=== PATIENT | male | born 2005 | race Caucasian/White ===

== ENCOUNTER 2025-01-16 02:02 | Emergency (ER) | payer BC, SELFPAY ==
[2025-01-16 02:08] VITALS: BP 158/117; PULSE 112; RESP 16; TEMP 36.7; O2SAT 100
--- NOTE | 2025-01-16 02:14 | ED_ITS ---
HPI - Dental/Oral General Chief complaint: Dental/Oral Stated complaint: dental pain Time Seen by Provider: 01/16/25 02:12 Source: patient Mode of arrival: ambulatory Limitations: no limitations History of Present Illness HPI Narrative: Patient presents with dental pain in the right upper tooth. He has completed a course of antibiotics. He needs an extraction as he states that he has DKA past the bone line and the plan is for removal and then an implant to be placed. He has seen an oral surgeon for this in early December and currently his procedure scheduled for February given that he is a student. He states water helps the pain, in particular for this cold. He has been taking various pain meds for this, typically 200 mg x 3 (600mg) t.i.d. ibuprofen as well as Tylenol 325 x2 several times a day (last doses were at 3am, 8am, and 3pm. He is also taking Tylenol #3 with his last dose being at 10 or 11pm. He denies any fever. He does state that he has some chills while in the emergency department although he is in a cold room and acknowledges he is wearing shorts and thinks that might be a contributor. He denies any ear pain or tinnitus. He reports having significant dizziness tonight and this is also what prompted to come to the emergency department in addition to the pain. He notes that he was so dizzy that he could not drive himself and had to have someone else drive him. Patient describes his dizziness as vertigo , feeling like he is falling, worse when closes eyes. Also describes it as a lightheadedness later. No disorientation/confusion. Related Data Allergies Allergy/AdvReac Type Severity Reaction Status Date / Time amoxicillin Allergy unknown Verified 01/16/25 17:56 [facility] Social History Social History Occupation/Education: student Additional occupation/education comments: college Exam 2 Narrative: GENERAL: Well-appearing, well-nourished, and in no acute distress. HEAD: Normocephalic, atraumatic. EYES: Non injected, non icteric ENT: Nares clear, no rhinorrhea or epistaxis. No trismus. Uvula midline. Posterior oropharynx without significant erythema/hyperemia. Patient tolerating secretions. Patient has multiple dental caries, many of them filled. No appreciable dental abscess, apical or otherwise. No tenderness to percussion of the tooth that patient identifies as being painful which is in the right upper portion of the mouth. No induration in the buccal mucosa or cheek. No dysphonia. Tolerating secretions. NECK: Supple. CHEST: Speaking in full sentences. No respiratory distress. HEART: Regular rate and rhythm. . ABDOMEN: Soft, nondistended. EXTREMITIES: Normal range of motion. No lower extremity edema. SKIN: Warm, dry, no rash. NEURO: No focal deficits. Alert and oriented x3. Fatigable 2 beat nystagmus to the left in b/l eyes. PSYCH: Normal mood and affect. Course Vital Signs Vital signs: Vital Signs Temperature 98.1 F 01/16/25 02:08 Pulse Rate 112 H 01/16/25 02:08 Respiratory Rate 16 01/16/25 02:08 Blood Pressure 158/117 H 01/16/25 02:08 Pulse Oximetry 100 01/16/25 02:08 Oxygen Delivery Room Air 01/16/25 02:08 Temperature 97.9 F 01/16/25 04:53 Pulse Rate 115 H 01/16/25 04:53 Respiratory Rate 15 01/16/25 04:53 Blood Pressure 161/100 H 01/16/25 04:53 Pulse Oximetry 100 01/16/25 04:53 Oxygen Delivery Room Air 01/16/25 02:08 MDM - Dental/Oral MDM Narrative Medical decision making narrative: Patient presents with dental pain and a right upper tooth which is due for extraction and new implantation by an oral surgeon currently scheduled for February because he is a student. In the emergency department he is afebrile with vital signs notable for tachycardia and hypertension. Given the patient has had tremendous pain, he has been using analgesic medication around the clock. Also what he reports seems to not be a toxic level, he is having symptoms and out of an abundance of precaution, will obtain Tylenol level as well as co-ingestants to ensure he has not accidentally overdosed and taken more than this. Tylenol level is appropriate. 1L IV fluids and meclizine initially ordered. UDS positive for opiates and amphetamines. Patient describes his dizziness as vertigo , feeling like he is falling, worse when closes eyes. He does have left beating fatigable nystagmus. Declines dental block that is offered. Patient tells the nurse at approximately 4:45 a.m. that his pain is improving. His dizziness is also improving although still present. He states tolerable. Will give 2nd line medication, Valium. Ortho stats are reviewed. Normal except for he is hypertensive. He states the Valium made him feel weird but his pain is better. Patient has been persistently tachycardic. Possibly due to slightly anxious affect and/or medication side effect (patient appears to be on ADD/ADHD meds per review of presciption monitoring program) but out of an abundance of precaution TSH in D-dimer (though patient denies CP or SOB) are ordered as well; these are normal. He does not know if a third line medication (considered promethazine for its antihistamine properties to suppress the vestibular end-organ receptors and inhibit activation of vagal response) will work given this has been a chronic issue; deferred for now. Patient is observed ambulating to the bathroom twice and does so with steady gait. Discharged with prescriptions for [id number]-gksvrew analgesics medications and reminded on appropriate dosing (although again, it does appear patient is taking them appropriately). Also provided short course of opiate medications for breatkthrough pain. DIRECTOR MUSEUM OR ZOO reviewed. Advised follow-up with oral surgeon and consideration of moving his surgical intervention up. Differential Diagnosis Differential diagnosis: Likely gingival abscess, dental caries, toothache, dental abscess, fracture of tooth and other (Consider medication side effect including accidental overdose) Lab Data Attestation: I reviewed the patient's lab results. Lab results narrative: Mild leukocytosis. 01/16/25 02:51 01/16/25 03:09 Labs: Lab Results 01/16/25 01/16/25 01/16/25 Range/Units 02:51 03:09 03:35 WBC 10.9 H (4.5-10.0) K/mm3 RBC 5.89 (4.6-6.20) M/mm3 Hgb 17.2 (14.0-18.0) g/dL Hct 48.0 (42.0-52.0) % MCV 81.5 (80-100) fl MCH 29.2 (26-34) pg MCHC 35.8 (32-36) g/dl RDW 12.5 (11.5-14.5) % Plt Count 232 (150-375) k/mm3 MPV 10.0 (7.4-10.4) fl Immature Gran % (Auto) 0.3 (0-0.5) % Neut % (Auto) 64.4 (45.5-73.1) % Lymph % (Auto) 23.4 (18.3-44.2) % [place] % (Auto) 7.6 (2.6-8.5) % Eos % (Auto) 3.9 (0-4.4) % Baso % (Auto) 0.4 (0.2-1.2) % Lymph # (Auto) 2.56 (0.9-3.2) K/mm3 [place] # (Auto) 0.8 H (0.1-0.6) K/mm3 Eos # (Auto) 0.4 H (0-0.3) K/mm3 Baso # (Auto) 0.0 (0.0-0.1) K/mm3 Abs Immat Gran (auto) 0.03 (0.00-0.031) K/mm3 Absolute Neuts (auto) 7.0 H (1.3-6.7) K/mm3 Absolute Nucleated RBC 0.000 (0.0-0.012) K/mm3 Nucleated RBC % 0.0 (0.0-0.2) % PT 13.4 (11.1-14.7) Seconds INR 1.0 APTT 31.6 (22.3-36.8) Seconds D-Dimer < 0.27 (<0.48) ug/mL Sodium 137 (137-145) mmol/L Potassium 3.9 (3.4-5.0) mmol/L Chloride 106 (98-107) mmol/L Carbon Dioxide 22 (22-30) mmol/L Anion Gap 9 (4-12) mmol/L BUN 10 (9-20) mg/dL Creatinine 0.74 (0.7-1.3) mg/dL Estim Creat Clear Calc 133 ml/min Estimated GFR > 60 (59 - ) Glucose 98 (65-110) mg/dL Calcium 8.5 (8.4-10.2) mg/dL Total Bilirubin 0.4 (0.2-1.3) mg/dL AST 20 (17-59) U/L ALT 25 (6-50) U/L Alkaline Phosphatase 70 (38-126) U/L Total Protein 6.0 L (6.3-8.2) g/dL Albumin 3.9 (3.5-5.1) g/dL TSH 4.010 (0.465-4.680) uIU/mL Salicylates < 1.0 L (2-20) mg/dL Urine Opiates Screen Positive A (Negative) Urine Methadone Screen Negative (Negative) Acetaminophen < 10 L (10-30) ug/mL Ur Barbiturates Screen Negative (Negative) Ur Phencyclidine Scrn Negative (Negative) Ur Amphetamine Screen Positive A (Negative) U Benzodiazepines Scrn Negative (Negative) Urine Cocaine Screen Negative (Negative) U Cannabinoids Screen Negative (Negative) Ethyl Alcohol < 10 (<10) mg/dL ECG Data EKG #1: Attestation: I personally reviewed and interpreted this ECG as follows: ECG completion date: 01/16/25 ECG completion time: 02:45 Interpretation: Normal sinus rhythm at a rate of 88 beats per minute. NC interval 132. QRS 93. QT/QTC 333/378. Good R-wave progression across the precordial leads. No T- wave inversions. There is widespread ST slurring, most prominent in the mid to left precordial leads V2 through V5 but without elevation and some eleation in II. but not III or aVF ; notching/slurring of the J-point in the inferior leads II and III. T waves are prominent slightly asymmetrical and concordant with the QRS complex. These findings, especially in an otherwise healthy patient of age less than 50 years old suggest benign early repolarization, usually benign ECG pattern Discharge Plan Discharge Clinical Impression: Tooth ache, Medication side effect, Dizziness Patient Disposition: Home, Self-Care Condition: Stable Instructions: Antibiotic Form, Vertigo (DC), Lightheadedness (ED), Dizziness (ED), Toothache (ED), Opioid Safety (ED) Additional Instructions: Acetaminophen/Tylenol (maximum 4000 mg per day) is safe to take with NSAIDs (ibuprofen/Motrin) for pain relief. For breakthrough pain, short course of opiate/narcotic medications have been prescribed. Maintain your hydration. Follow-up with your oral surgeon, reasonable to see if surgery can be moved up sooner. Return to the emergency department with any new/worsen/unmanaged symptoms. Patient Language: Qatari Prescriptions: New ibuprofen 600 mg tablet 600 mg PO TID PRN (Reason: pain) Qty: 30 0RF acetaminophen 500 mg capsule 1,000 mg PO Q6H PRN (Reason: pain) Qty: 30 0RF oxycodone 5 mg tablet 5 mg PO Q8H PRN (Reason: pain) Qty: 14 0RF Follow-up/Referrals: UNKNOWN,DOCTOR [Primary Care Provider] - Stand Alone Forms: Work/School Release IP Time of Disposition: 05:47
--- NOTE | 2025-01-16 02:34 | ECG_ITS ---
Test Date: 2025-01-16 02:45:47 Measurements Intervals [place] Rate: 88 P: 21 WA: 132 QRS: 50 QRSD: 93 T: 33 QT: 333 QTc: 403 Interpretive Statements SINUS RHYTHM ST ELEVATION CONSISTENT WITH PERICARDITIS, OR EARLY REPOLARIZATION [ST ELEVATION W/O NORMALLY INFLECTED T WAVE] No previous ECG available for comparison Electronically Signed On 01-16-2025 11:46:05 CDT by Simon Reed M.D.
--- OUTSIDE RECORDS SUMMARY | 2025-01-16 02:41 | XMS_ITS | Clinical Summary ---
Author Organization [facility] Address [address] [place] [address] Phone Care Team Providers Care Architectural Project Captain Name Role Phone Lakia Reyes MD Primary Care Provider Allergies Active Allergy Reactions Criticality Noted Date Comments Amoxicillin Nausea 09/26/2017 Nausea, vomiting Amoxicillin-Pot Clavulanate Nausea,Anxiety Medium 05/2018 No Known Drug Allergy Unknown 10/14/2013 Medications busPIRone (BUSPAR) 10 MG Tablet 2 times daily. 9 Active acetaminophen (TYLENOL) 325 MG Tablet Take 2 Tabs by mouth every 6 hours as needed for Mild or more severe pain or Fever. 120 Tab 0 Active ibuprofen (MOTRIN) 400 MG Tablet Take 1 Tab by mouth every 6 hours as needed for Mild or more severe pain or Fever. 270 Tab 0 Active sertraline (ZOLOFT) 100 MG Tablet 0 Active ondansetron (Zofran ODT) 4 MG TABLET DISPERSIBLE Take 1 Tablet by mouth every 8 hours as needed for Nausea - 1st line. 15 Tablet 1 Active HYDROcodone-acetam inophen (NORCO) 5-325 MG TabletIndications: Dental caries Take 1 Tablet by mouth every 6 hours as needed for Severe pain. 12 Tablet 3 Active amphetamine-dextro amphetamine (Adderall) 15 MG TabletIndications: Attention deficit disorder, unspecified hyperactivity presence Take 1 Tablet by mouth 2 times daily. 60 Tablet 4 Active Active Problems Problem Noted Date Diagnosed Date ADD (attention deficit disorder) 01/18/2021 Obsessive compulsive disorder 02/04/2020 Mood disorder 02/04/2020 Thrombocytopenia 02/03/2020 Resolved Problems Problem Noted Date Diagnosed Date Resolved Date Headache 02/04/2020 02/07/2020 Viral sepsis 02/03/2020 01/18/2021 Abdominal pain 02/03/2020 02/07/2020 Body aches 02/03/2020 02/07/2020 Adenovirus infection 02/03/2020 021 Neutropenia associated with infection 02/03/2020 01/18/2021 Bandemia 02/03/2020 01/18/2021 COVID-19 testing in process 02/03/2020 02/07/2020 Overview (02/03/2020): COVID19 RT-PCR testing sent on 02/02/20 due to lower respiratory tract symptoms with fever. Results pending Encounters Date Type Department Care Team Description 01/15/2025 [facility] [address] [place] [address] Nina Adamson, MOTORCYCLE DELIVERER, EMPLOYEE COUNSELOR from Last 3 Months Immunizations Immunization Administration Dates Next Due Covid-19, Mrna, Lnp-s, Pf, 3 0 Mcg/0.3 Ml Dose (Pfizer) 02/27/2021,02/06/2021 DTAP VACCINE 05/18/2009, 5,2004,07/15,2004 HIB Vaccine (PRP-T) 03/24/2005, 4,2004,05/12 Hepatitis A Vaccine 05/18/2009 Hepatitis A Vaccine, Pediatric/adolescent, 2 Dose Schedule 02/02/2022 Hepatitis B Vaccine 2004,2004,2003 Human Papillomavirus (HPV) 9 -valent Vaccine 11/06/2017,05/15/2017 Inactivated Polio Vaccine 05/18/2009,,2004,05/12 Influenza Vaccine, Quadrivalent, PF /12/2022,08/04/2021,08/28/2020,09/18,08/01/2017 MMR Vaccine 05/18/2009,03/24/2005 Meningococcal MCV4O 06/03/2021 PUR MENINGOCOCCAL MCV4O 05/22/2015 PUR TDAP 7+ YRS IM 05/22/2015 Pneumococcal Vaccine Peds - 7 Valent 11/2004,2004,2004,05/12 Pur Varicella Virus SQ 05/22/2015 Varicella Vaccine Live 03/24/2005 Family History Medical History Relation Name Comments No Known Problems Father No Known Problems Mother Relation Name Status Comments Father Mother Social History Tobacco Use Types Packs/Day Years Used Date Smoking Tobacco: Never Smokeless Tobacco: Never Tobacco Cessation:Counseling Given: No Alcohol Use Standard Drinks/Week Comments No 0 (1 standard drink = 0.6 oz pur e alcohol) Education Answer Date Recorded What is the highest level of school you have completed or the highest degree you have received? 12th grade 11/25/2022 Sex and Gender Information Value Date Recorded Sex Assigned at Not on file Legal Sex Male 4:00 AM MARKET EDITOR Gender Identity Not on file Sexual Orientation Not on file Last Filed Vital Signs Vital Sign Reading Time Taken Comments Blood Pressure 137/105 10/04/2023 1:38 AM MARKET EDITOR Pulse 87 10/04/2023 1:38 AM MARKET EDITOR Temperature 36.3 C (97.3 F) 10/04/2023 1:38 AM MARKET EDITOR Respiratory Rate 19 10/04/2023 1:38 AM MARKET EDITOR Oxygen Saturation 99% 10/04/2023 1:38 AM MARKET EDITOR Inhaled Oxygen Concentration - - Weight 73.8 kg (162 lb 11.2 oz) 10/04/2023 1:38 AM MARKET EDITOR Height 177.8 cm (5' 10 ) 10/04/2023 1:38 AM MARKET EDITOR Body Mass Index 23.34 10/04/2023 1:38 AM MARKET EDITOR Plan of Treatment Health Maintenance Due Date Last Done Comments Hepatitis C Virus (HCV) Screening 2004 Meningococcal B Immunization (1 of 2 - Standard) 2020 Influenza Immunization (#1) 2024 02/0 12/2022, 08/04/2021, 08/28/2020, Additional history exists SARS-COV-2 Immunization ( season) 2024 01/01/2022, 02/27/2021, 02/06/2021 DTaP/Tdap/Td Immunization (7 - Td or Tdap) 05/22/2025 05/22/2015, 05/18/2009, 07/18/2005, Additional history exists Respiratory Syncytial Virus (RSV) Immunization (Adult) (1 - 1-dose 75+ series) 2079 Hepatitis B Immunization Completed 004, 2004, 2004 Pneumococcal Immunization Combined Aged Out 03/24/2005, 2004, 2004, Additional history exists No longer eligible based on patient's age to complete this topic Measles Mumps Rubella (MMR) Immunization Discontinued 05/18/2009, 03/24/2005 Polio (IPV) Immunization Discontinued 009, 07/18/2005, 2004, Additional history exists Varicella Immunization Discontinued 05/22/2015, 2004 Human Papillomavirus (HPV) Immunization Completed 11/06/2017, 05/15/2017 Meningococcal Immunization (ACWY) Completed 06/03/2021, 05/22/2015 Hepatitis A Immunization Discontinued 02/02/2022, 04/23 Rotavirus Immunization Aged Out No lo nger eligible based on patient's age to complete this topic Insurance [facility] [employer] ID [employer] Advance Directives * Full Code (Latest Code Status on File) Date Activated Date Inactivated Comments 02/03/2020 6:07 AM 02/04/2020 3:00 PM CPR-Full [place] atment: FULL ARREST: Attempt Resuscitation/CPR wit intubation and mechanical ventilation. PRE-ARREST: Use entire range of life support measures to stabilize the patient. Care Teams Architectural Project Captain Relationship Specialty Start Date End Date Lakia Reyes MD [address] [place] [phone] PCP - General Family Medicine 02/26/24
--- OUTSIDE RECORDS SUMMARY | 2025-01-16 02:41 | XMS_ITS | Encounter Summary ---
Author Organization [facility] Address [address] [place] [address] Phone Care Team Providers Care Bar Welder Name Role Phone Lakia Reyes MD Primary Care Provider Encounter Details Date Type Department Care Team (Late st Contact Info) Description 01/15/2025 [facility] [address] [place] [address] Nina Adamson APRN, CIGARETTE MAKER [address] [place] [address] Social History Tobacco Use Types Packs/Day Years Used Date Smoking Tobacco: Never Smokeless Tobacco: Never Alcohol Use Standard Drinks/Week Comments No 0 (1 standard drink = 0.6 oz pur e alcohol) Education Answer Date Recorded What is the highest level of school you have completed or the highest degree you have received? 12th grade 11/25/2022 Sex and Gender Information Value Date Recorded Sex Assigned at Not on file Legal Sex Male 4:00 AM TORCH BURNER Gender Identity Not on file Sexual Orientation Not on file documented as of this encounter Progress Notes * Nina Adamson, BELLA, CIGARETTE MAKER - 01/15/2025 11:49 PM CDT Date: 01/15/2025 22:49:57 Clinician: Nina Adamson Clinician Patient: Mike Kelly Patient : 2005 Patient [address]: [address] [place] [phone] Patient Visit Protocol: Direct to video - expanded Patient Summary: Mike is a 19 year old ( : 2005 ) male who initiated a visit to speak with a provider via video. Reason for visit as reported by the patient (free text): Severe dental pain b/w #3 & #4. Possibly infection/irritation. Awaiting tooth extraction and I desire an antiseptic mouthwash to clean infected area. Mike denies dizziness, head injury or concussion symptoms, severe headache with no prior headache episodes, severe abdominal pain, and unexplained weight loss. Mike does not smoke or use smokeless tobacco. [facility] Specific Question(s): When asked the question Are you an existing [facility] patient? , Mike responded Yes, I am an existing patient . MEDICATIONS: Zoloft oral, buspirone oral, Adderall XR oral, ALLERGIES: amoxicillin Clinician Response: Dear Mike, Take antibiotics as prescribed Continue tylenol/motrin for pain as instructed on the bottle Call dentist tomorrow for soonest available follow up Be seen in person if symptoms worsen or fail to improve or you begin to develop facial swelling, fever, or any other concerns Diagnosis: Periapical abscess without sinus Diagnosis ICD: K04.7 Triage Notes: I reviewed the patient's history, verified their identity, and explained the visit process. [facility] I reviewed the patient history, verified their identity, and explained the visit process. Subjective Data Chief Complaint: Severe dental pain b/w #3 & #4. Possibly infection/irritation. Awaiting tooth extraction and I desire an antiseptic mouthwash to clean infected area. HPI: Mike Kelly is a 19 y/o male who presents via video for evaluation of dental pain. Patient reports top right tooth pain between tooth #3 and #4. Reports both teeth hurt. #4 has visible decay and scheduled to be extracted in February. #4 has a crown. He had similar symptoms in October and took clindamycin. He has been taking ibuprofen and tylenol today. He denies fever, chills, or vomiting. Tenderness to the area. No facial swelling. Allergy to amoxicillin. No issues with clindamycin. Denies/ROS negative unless otherwise noted in HPI and physical exam. Objective Data Vitals: n/a Physical Assessment Constitutional: No acute distress. Patient is resting comfortably. Judgement intact. Mouth : See photo below. Tenderness to tooth #3 & #4. Tenderness when pressing on the outside. No large facial swelling. No drainage/discharge Respiratory: Speaking clearly in complete sentences. No audible wheezing. Neuro: Alert and oriented to person, place, time, and situation. Assessment Diagnosis: Dental abscess, dental pain, dental decay Plan Prescriptions (s): clindamycin Follow-up care: Abx as prescribed, continue tylenol/motrin, call dentist tomorrow for soonest available follow up, be seen in person if symptoms worsen or fail to improve Symptomatic treatment discussed. Signs and symptoms requiring re-evaluation or emergency care discussed. Side effects and risk/benefits of all medications discussed with patient/caregiver. All questions/concerns addressed and answered.Patient received written and verbal instructions regarding this condition. Follow up to be arranged by patient with PCP in 2-3 days for further evaluation if symptoms do not improve or worsen. Counseled patient that there are no certainties when it comes to medical workups. Informed patient that they may have presented to [facility] urgent care during the early stages of a serious disease process, but that a lethal or otherwise emergent condition was unlikely to be present at this time. Patient was given extensive verbal return precautions and they voiced understanding. An After Visit Summary was sent electronically to patient. Synchronous Triage: video, status: completed, duration: 1314 seconds Prescriptions Prescription: clindamycin HCl (Cleocin HCl) 300 mg oral capsule, take 1 capsule by mouth every 8 hours for 7 days Sent To: [facility] #[id number] - [id number] - [address] [place] [address] Nina Adamson - documented in this encounter Plan of Treatment Not on file documented as of this encounter Visit Diagnoses Not on filedocumented in this encounter Care Teams Bar Welder Relationship Specialty Start Date End Date Lakia Reyes MD [address] [place] [phone] PCP - General Family Medicine 02/26/24 documented as of this encounter
--- OUTSIDE RECORDS SUMMARY | 2025-01-16 02:42 | XMS_ITS | Patient Health Record ---
Author Organization [facility] Address [address] [place] [address] Care Team Providers Care Emissions Repair Technician Name Role Phone Jose Chavez Primary Care Provider Javier Vance Unavailable [phone] Allergies Allergen (clinical drug ingredient) Drug/Non Drug Allergy documented on EMR Reaction Allergy Type Onset Date Status amoxicillin Amoxicillin nausea and vomiting Drug Allergy Active Reason For Referral No Information Medications Medication SIG (Take, Route, Frequency, Duration) Notes Start Date End Date Status Zoloft Active Amphetamine-Dextroamphetam ine 30 MG Oral for 30 Days Active busPIRone HCl 10 MG Oral for 90 Days Active Problems Problem Type SNOMED Code ICD Code Onset Dates Problem Status W/U Status Risk Notes Problem Pain of left hand (098984841989 103) Left hand pain (M79.642) Active confirmed Plan Of Treatment No Information Insurance Providers Payer Name Payer Address Payer Phone Subscriber Number Group Number Insured Name Patient Relationship to Insured Coverage Start Date Coverage End Date [facility] Insurance [facility] [address] [place] [address] [phone] [id number] Leonardo Kelly Self - patient is the insured 3
--- OUTSIDE RECORDS SUMMARY | 2025-01-16 02:42 | XMS_ITS ---
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 Name Role Phone Jose Chavez Primary Care Provider Javier Vance [phone] Allergies Allergen (clinical drug ingredient) Drug/Non Drug Allergy documented on EMR Reaction Allergy Type Onset Date Status amoxicillin Amoxicillin nausea and vomiting Drug Allergy Active Results Component Value Reference Range Notes XR Wrist left 3 views Reviewed date:08/18/2023 02:15:53 PM Interpretation: Performing Lab: Notes/Report: REASON FOR VISIT NW L HAND/WRIST (FALL), Left wrist pain Medications Medication SIG (Take, Route, Frequency, Duration) Notes Start Date End Date Status Zoloft Active Amphetamine-Dextroamphetam ine 30 MG Oral for 30 Days Active busPIRone HCl 10 MG Oral for 90 Days Active Vital Signs Height 5ft 10in in 08/18/2023 Weight 160 lbs 08/18/2023 BMI 22.96 kg/m2 08/18/2023 BMI Percentile 53.23 % 08/18/2023 Height-cm 177.8 cm 08/18/2023 Weight-kg 72.57 kg 08/18/2023 Encounters Encounter Location Date Provider Diagnosis [facility] [address] [place] [address] 08/18/2023 Javier Lee Left hand pain M79.642 Assessments Encounter Date Diagnosis (ICD Code) Assessment Notes Treatment Notes Treatment Clinical Notes Section Notes 08/18/2023 Left hand pain (ICD-10 - M79.642) 08/18/2023 Other I reviewed x-rays and there is no obvious fracture. There may be a small lucent line that could be a fracture it is exactly where he is having pain. The safest thing to do would be to put him in a cock-up wrist splint which she will wear for 3 weeks. If he is high speed warper tender he will wear it for another week. If he is high speed warper tender after that he will come back Disclaimer: To increase efficiency your provider prepared this document using voice recognition technology. If a word or phrase is confusing, or does not make sense, this is likely due to a recognition error within the program which was not discovered during the provider's review. If you believe an error has occurred, please notify your provider's office at your earliest convenience, so we can correct any mistakes. Plan Of Treatment Treatment Notes Assessment Notes Other I reviewed x-rays and there is no obvious fracture. There may be a small lucent line that could be a fracture it is exactly where he is having pain. The safest thing to do would be to put him in a cock-up wrist splint which she will wear for 3 weeks. If he is high speed warper tender he will wear it for another week. If he is high speed warper tender after that he will come back Disclaimer: To increase efficiency your provider prepared this document using voice recognition technology. If a word or phrase is confusing, or does not make sense, this is likely due to a recognition error within the program which was not discovered during the provider's review. If you believe an error has occurred, please notify your provider's office at your earliest convenience, so we can correct any mistakes. Progress Notes * Ana KELLYOB:2005 (18 yo M)Acc No.[id number]:08/18/2023 Initial Office Note Patient: Mike POWERS Provider: Jono Lee MD :2005 A ge:18 Y S ex:Male Date:08/18/2023 Address:[address] [place] [address] Pcp:Jose Chavez Subjective: * Chief Complaints: * 1 . NW L HAND/WRIST (FALL). 2. Left wrist pain. * HPI: H PI: This patient injured his wrist in a fall. He comes in for evaluation. * Medical History: M edical History Verified. * Hospitalization/Major Diagno stic Procedure: D enies Past Hospitalization. * Family History: alcholism. * Social History: n on smoker n on drinker. * Medications: T aking Zoloft , Taking Amphetamine-Dextroamphetamine 30 MG Tablet Oral , Taking busPIRone HCl 10 MG Tablet Oral , Medication List reviewed and reconciled with the patient * Allergies: A moxicillin: nausea and vomiting. Objective: * Vitals: H t: 5ft 10in, Wt:160lbs, BMI:22.96Index, Pain scale:21-10, Wt-k.57 kg, Wt %: 59.41 %, Ht-cm: 177.8 cm, Ht %: 56 %, BMI %: 53.23 %, Body Surface Area: 1.89. * Examination: R adiology Screening: Patient N o. Patient shielded Y es. G eneral Exam: T here is no deformity of the wrist there is no swelling the neurovascular status is intact he does have point tenderness over the dorsal surface of the distal radius. Assessment: * Assessment: 1. L eft hand pain - M79.642 Plan: * Treatment: * 2.?Others? Notes: I reviewed x-rays and there is no obvious fracture. There may be a small lucent line that could be a fracture it is exactly where he is having pain. The safest thing to do would be to put him in a cock-up wrist splint which she will wear for 3 weeks. If he is high speed warper tender he will wear it foranother week. If he is high speed warper tender after that he will come back Disclaimer: To increase efficiency your provider prepared this document using voice recognition technology. If a word or phrase is confusing, or does not make sense, this is likely due to a recognition error within the program which was not discovered during the provider's review. If you believe anerror has occurred, please notify your provider's office at your earliest convenience, so we can correct any mistakes.?? * Procedure Codes: 7 3110 XRAY EXAM OF WRIST, Modifiers: LT * Billing Information: * Visit Code: * Procedure Codes: 01750 XRAY EXAM OF WRIST. Modifiers: LT * Sign off status: Completed true * Provider: Jono Lee MD Date: 1 Generated for Mich livingston/John/Adelaide on: 0 01/16/2025 02:41 AM CDT History and Physical Notes * HPI (History of Present Illness) Category Sub-Category Detail Notes Category Not es HPI This patient in jured his wrist in a fall. He comes in for evaluation. Examination Category Sub-Category Detail Notes Category Not es Radiology Screening Patient No Patient shielded Yes General Exam There is no def ormity of the wrist there is no swelling the neurovascular status is intact he does have point tenderness over the dorsal surface of the distal radius.
[2025-01-16] MEDS: SODIUM CHLORIDE 0.9% IV 1,000 ML 999 ML IV CONT (02:50)
[2025-01-16 02:56] LABS: Basophils Percent Auto 0.4 % (0.2-1.2); Eosinophils Absolute Auto 0.4 K/mm3 (0-0.3); Eosinophils Percent Auto 3.9 % (0-4.4); Hemoglobin 17.2 g/dL (14.0-18.0); Immature Granulocyte Absolute 0.03 K/mm3 (0.00-0.031); Immature Granulocyte Percent A 0.3 % (0-0.5); Lymphocytes Absolute Auto 2.56 K/mm3 (0.9-3.2); Lymphocytes Percent Auto 23.4 % (18.3-44.2); Mean Corpuscular HGB Conc 35.8 g/dl (32-36); Mean Corpuscular Hemoglobin 29.2 pg (26-34); Mean Corpuscular Volume 81.5 fl (80-100); Monocytes Absolute Auto 0.8 K/mm3 (0.1-0.6); Monocytes Percent Auto 7.6 % (2.6-8.5); Neutrophils Percent Auto 64.4 % (45.5-73.1); Platelet Count Result 232 k/mm3 (150-375); Red Blood Count 5.89 M/mm3 (4.6-6.20); Red Cell Distribution Width 12.5 % (11.5-14.5); White Blood Count 10.9 K/mm3 (4.5-10.0)
[2025-01-16 03:02] VITALS: BP 155/90; PULSE 99; RESP 15; TEMP 36.7; O2SAT 100
[2025-01-16 03:14] LABS: Prothrombin Time 13.4 Seconds (11.1-14.7)
[2025-01-16 03:15] LABS: Partial Thromboplastin Time 31.6 Seconds (22.3-36.8)
[2025-01-16 03:23] LABS: Acetaminophen < 10 ug/mL (10-30); Ethanol < 10 mg/dL (<10); Salicylate < 1.0 mg/dL (2-20)
[2025-01-16 03:24] LABS: Alanine Aminotransferase 25 U/L (6-50); Albumin Level 3.9 g/dL (3.5-5.1); Alkaline Phosphatase 70 U/L (38-126); Anion Gap 9 mmol/L (4-12); Aspartate Amino Transferase 20 U/L (17-59); Bilirubin,Total 0.4 mg/dL (0.2-1.3); Blood Urea Nitrogen 10 mg/dL (9-20); Calcium 8.5 mg/dL (8.4-10.2); Carbon Dioxide 22 mmol/L (22-30); Chloride 106 mmol/L (98-107); Estimated CRCL calculation 133 ml/min; Estimated Glomerular Filt Rate > 60; Glucose 98 mg/dL (65-110); Potassium 3.9 mmol/L (3.4-5.0); Sodium 137 mmol/L (137-145)
[2025-01-16 03:26] VITALS: BP 168/105; PULSE 104
[2025-01-16 03:27] VITALS: BP 174/116; PULSE 113
[2025-01-16 03:28] VITALS: BP 168/98; PULSE 111
[2025-01-16 03:55] LABS: Amphetamine Screen Urine Positive (Negative); Barbiturate Screen Urine Negative (Negative); Benzodiazepines Screen Urine Negative (Negative); Cannabinoid Screen Urine Negative (Negative); Cocaine Screen Urine Negative (Negative); Methadone Screen Urine Negative (Negative); Opiate Screen Urine Positive (Negative); Phencyclidine Screen Urine Negative (Negative)
[2025-01-16] MEDS: MORPHINE SULFATE (*CRX) 4 MG/ML INJ IV PUSH (04:12)
[2025-01-16] MEDS: MECLIZINE HCL 25 MG TABLET PO (04:12)
[2025-01-16] MEDS: ONDANSETRON INJ 4 MG/2 ML VIAL IV PUSH (04:18)
[2025-01-16] MEDS: diazePAM INJ (*CRX) 10 MG/2 ML SYRINGE 2.5 MG IV PUSH (04:52)
[2025-01-16 04:53] VITALS: BP 161/100; PULSE 115; RESP 15; TEMP 36.6; O2SAT 100
[2025-01-16 05:37] LABS: D Dimer < 0.27 ug/mL (<0.48)
== END 2025-01-16 06:28 | disposition home or self-care (01) ==
PROVIDERS: Emergency Provider Student in an Organized Health Care Education/Training Program
DX: K08.89 Other specified disorders of teeth and supporting structures (principal); R42 Dizziness and giddiness; T50.905A Adverse effect of unspecified drugs, medicaments and biological substances, initial encounter
CPT/HCPCS: 36415; 80053; 80143; 80179; 80307; 82077; 84443; 85025; 85380; 85610; 85730; 93005; 96361; 96374; 96375; 99284; A9270; J2270; J2405; J3360; J7030